=== PATIENT | female | born 1995 | race African-American/Black ===

== ENCOUNTER 2019-11-29 19:27 | Observation (INO) ==
[2019-11-29 20:57] LABS: Basophils # 0.1 10*3/uL (0.0-0.2); Basophils % 0.8 % (0.0-0.8); Eosinophils # 0.1 10*3/uL (0.0-0.87); Eosinophils % 0.6 % (0.00-10.9); Hematocrit 27.2 VOL% (35.7-47.0); Hemoglobin 6.8 GM/DL (12.0-16.0); Immature Granulocytes % 0.3 %; Immature Granulocytes Absolute 0.03 #; Lymphocytes # 2.7 10*3/uL (1.4-4.0); Lymphocytes % 23.6 % (21.3-54.2); Mean Platelet Volume 9.6 FL (9.6-12.0); Monocytes % 10.7 % (1.7-12.7); Platelet Count 405 T/CUMM (130-400); Red Blood Count 4.39 MC/CUMM (3.8-5.5); Red Cell Distribution Width 23.8 % (9.3-17.3); White Blood Count 11.5 T/CUMM (4-12)
[2019-11-29 21:04] LABS: Albumin 3.8 G/DL (3.4-5.0); Bilirubin,Total 0.4 MG/DL (0.2-1.0); Calcium 8.9 MG/DL (8.5-10.1); Osmolality,Calculated 270.8 MOS/KG (273-304); Total Protein 7.9 G/DL (6.4-8.3)
[2019-11-29 21:04] LABS: Apearance,Urine CLEAR (Clear); Bilirubin,Urine Negative (Negative); Blood, Urine Negative (Negative); Glucose,Urine (UA) Negative (Negative); Ketones,Urine Negative (Negative); Mucus,Urine Occasional /LPF (Occasional); Nitrite,Urine Negative (Negative); Protein,Urine Negative; RBC,Urine 2 /HPF (0-4); Squamous Epithelial Cell,Urine Occasional /HPF (0-10); Urine Color Colorless (Yellow); Urine Specific Gravity 1.005 (1.001-1.035); Urine Urobilinogen < 2.0 EU/DL (0.2-1.0)
[2019-11-29 21:05] LABS: Hypochromasia 2+
[2019-11-29 21:06] LABS: Microcytosis 2+; Polychromasia Few; Target Cells Few
[2019-11-29 21:07] LABS: Anisocytosis 1+; Ovalocytes Few; Platelet Estimate Adequate; Schistocytes Few
[2019-11-30] MEDS ORDERED: GLUCAGON 1 MG VIAL IM PRN (02:54)
[2019-11-30] MEDS ORDERED: ACETAMINOPHEN 325 MG TABLET PO PRN (02:54)
[2019-11-30] MEDS ORDERED: ONDANSETRON 4 MG/2 ML VIAL IV PRN (02:54)
[2019-11-30] MEDS ORDERED: SODIUM CHLORIDE 0.9% 1,000 ML IV PRN ×2 (02:54→11:27)
[2019-11-30] MEDS ORDERED: DEXTROSE 10% 250 ML BAG IV PRN (03:06)
[2019-11-30 03:29] LABS: Basophils # 0.1 10*3/uL (0.0-0.2); Basophils % 0.6 % (0.0-0.8); Eosinophils # 0.1 10*3/uL (0.0-0.87); Eosinophils % 0.6 % (0.00-10.9); Immature Granulocytes % 0.2 %; Immature Granulocytes Absolute 0.02 #; Lymphocytes # 3.1 10*3/uL (1.4-4.0); Lymphocytes % 30.3 % (21.3-54.2); Mean Corpuscular HGB Conc 24.4 GM/DL (32-36); Mean Corpuscular Volume 62.4 FL (87-102); Monocytes % 9.9 % (1.7-12.7); Neutrophils % 58.4 % (38.7-73.9); Platelet Count 376 T/CUMM (130-400); Red Blood Count 4.41 MC/CUMM (3.8-5.5); Red Cell Distribution Width 23.7 % (9.3-17.3); White Blood Count 10.3 T/CUMM (4-12)
[2019-11-30] MEDS ORDERED: POTASSIUM CHLORIDE 20 MEQ TABLET PO ONE (03:30)
[2019-11-30 03:41] LABS: Folate 18.6 NG/ML (5.4-24.0)
[2019-11-30 04:09] LABS: Hematocrit 27.1 VOL% (35.7-47.0); Hemoglobin 6.7 GM/DL (12.0-16.0)
[2019-11-30 06:08] LABS: Hypochromasia 2+; Microcytosis 2+; Polychromasia Slight
[2019-11-30 06:09] LABS: Platelet Estimate Normal; Target Cells Slight
[2019-11-30] MEDS ORDERED: PANTOPRAZOLE 40 MG TABLET PO SCH (09:00)
[2019-11-30 17:27] LABS: Calcium 9.2 MG/DL (8.5-10.1); Osmolality,Calculated 273.5 MOS/KG (273-304)
[2019-11-30 17:35] LABS: Ferritin 4.1 ng/ml (8-252)
[2019-11-30 18:57] VITALS: BP 126/69
[2019-11-30 19:25] LABS: Hematocrit 34.9 VOL% (35.7-47.0)
[2019-11-30 19:36] LABS: Hemoglobin 9.6 GM/DL (12.0-16.0)
== END 2019-11-30 19:50 | disposition home or self-care (01) ==
LOC: N.EDINP 19:27 → N.ED 19:27 → N.3E 19:27 → N.EDINP 23:23
PROVIDERS: ADMIT Internal Medicine; ATTEND Internal Medicine